=== PATIENT | male | born 1990 | race Two or more races ===

== ENCOUNTER 2024-01-01 18:32 | Emergency (ER) | payer MEDICAID, OTHER ==
[~2024-01-01] VITALS: Ht 162.6 cm; Wt 85.0 kg
[2024-01-01 21:21] VITALS: BP 147/90; PULSE 90; RESP 20; TEMP 99; O2SAT 97
[2024-01-01] MEDS ORDERED: CEPH500C PO (21:42)
== END 2024-01-01 21:55 | disposition home or self-care (01) ==
LOC: ER 18:32
DX: N64.9 Disorder of breast, unspecified (principal)